=== PATIENT | male | born 1990 | race Caucasian/White ===

== ENCOUNTER 2021-11-30 20:26 | Emergency (ER) | payer BC, SELFPAY ==
[2021-11-30 20:28] VITALS: BP 140/98; PULSE 98; RESP 19; TEMP 36.7; O2SAT 98; BMI 33.2
--- NOTE | 2021-11-30 21:11 | [facility].EDSKAF ---
ED Disposition Clinical Impression: Erythema of upper extremity Disposition: Home, Self-Care Condition on Discharge: Good Instructions: DI for Cellulitis -- Adult Additional Instructions: use meds and stop zithromax and call pcp Prescriptions: Cefdinir [Omnicef 300mg Capsule] 300 mg PO BID #14 cap Transmission Status: Pending to [facility] Referrals: Rahat Potter [Primary Care Provider] - - Critical Care Critical Care Time: No Attestation: On 11/30/21, the high probability of a clinically significant, sudden or life threatening deterioration of the following system(s) required my full and direct attention, intervention and personal management. The time I documented below is in addition to time spent performing reported procedures but includes the following listed in this critical care notation. Medical Decision Making - Medical Records Medical records reviewed: Yes: I reviewed the patient's medical records. - Paramjit Inquiry Pt receiving controlled substance: No Vital Signs: 11/30/21 20:28 Temperature 98.1 F Temperature Source Oral Pulse Rate [Right] 98 H Respiratory Rate 19 Blood Pressure [Right Arm] 140/98 H Blood Pressure Mean [Right Arm] 112 Blood Pressure Source [Right Arm] Automatic Cuff 02 Sat by Pulse Oximetry 98 Oxygen Delivery Method Room Air - Lab Data Lab results reviewed: Yes: I reviewed the patient's lab results. Lab Results 11/30/21 20:59: WBC 13.7 H, RBC 5.34, Hgb 16.5, Hct 47.6, MCV 89.2, MCH 30.9, MCHC 34.6, RDW 12.9, Plt Count 307, MPV 7.5, Neut % (Auto) 63.2, Lymph % (Auto) 30.8, Waller % (Auto) 4.9, Eos % (Auto) 0.6, Baso % (Auto) 0.4, Neut # (Auto) 8.7 H, Lymph # (Auto) 4.2, Waller # (Auto) 0.7, Eos # (Auto) 0.1, Baso # (Auto) 0.1, ESR 15 11/30/21 20:59: Sodium 139, Potassium 3.8, Chloride 103, Carbon Dioxide 26, Anion Gap 13.8, BUN 17, Creatinine 0.80, Estimated Creat Clear 214, Estimated GFR 114, Est GFR ( Amer) 138, Glucose 123 H, Calcium 9.5, Total Bilirubin 0.9, AST 29, ALT 32, Alkaline Phosphatase 76, C-Reactive Protein 2.7, Total Protein 7.6, Albumin 4.9, Globulin 2.7, Albumin/Globulin Ratio 1.8, Procalcitonin 0.046 11/30/21 20:59: Lactate 2.4 H 11/30/21 20:59: D-Dimer 0.40 Result diagrams: 11/30/21 20:59 11/30/21 20:59 Orders (Tests/Meds): ED MEDICATIONS Generic Name Dose Route Start Last Admin Trade Name Freq PRN Reason Stop Dose Admin Sodium Chloride 1,000 mls @ 999 mls/hr 11/30/21 21:15 11/30/21 21:49 Sod Chlor 0.9% 1000ml Bag IV 11/30/21 22:15 999 mls/hr .Q1H1M NICKOLAS Administration Ceftriaxone Sodium 1 gm/ 50 mls @ 100 mls/hr 11/30/21 22:45 Sodium Chloride IV 12/14/21 22:44 Q24H NICKOLAS Methylprednisolone Sodium Succinate 125 mg 11/30/21 22:45 Methylprednisolone Sod Succ 125mg Vial IV 12/30/21 22:44 Q12H NICKOLAS Discontinued Medications Generic Name Dose Route Start Last Admin Trade Name Freq PRN Reason Stop Dose Admin Ketorolac Tromethamine 30 mg 11/30/21 21:11 11/30/21 21:49 Ketorolac 30mg/Ml Vial IV 11/30/21 21:12 30 mg ONCE ONE Administration ORDERS Category Date Time Status Blood Culture Stat Micro 11/30/21 21:08 Received Medical Decision Narrative: nonspecific reddness and tender to ext surface - no lesions and jts ok and rom ok - neg d dimer and nonspecific labs - possible photosensitivity vs atypical cellulitis Skin/Abscess/FB HPI - General Chief complaint: Extremity Problem,Nontraumatic Stated complaint: Pain, tenderness heat in L arm Time Seen by Provider: 11/30/21 21:00 Mode of Arrival: Family Vehicle Source of Information: Patient, Relative, Medical Record Limitations: No Limitations Description of Symptoms (Recalled from ER Triage Doc. by RN): Pt c/o Left arm pain, heat, swelling, and redness. Denies any hx of blood clots or dvt. Denies fever, chills, n/v/d, or SOA. Pt report yesterday he began taking Azithromax for an ear infection. Then today noticed his lef
[2021-11-30 21:17] LABS: Basophils # 0.1 K/mm3 (0-0.2); Basophils % 0.4 % (0.1-2.0); Eosinophils # 0.1 K/mm3 (0.0-0.4); Eosinophils % 0.6 % (0.1-12.0); Hematocrit 47.6 % (42.0-52.0); Hemoglobin 16.5 g/dL (14.1-18.0); Lymphocytes # 4.2 K/mm3 (0.7-4.5); Lymphocytes % 30.8 % (10-50); Mean Corpuscular HGB Conc 34.6 g/dL (31.8-35.4); Mean Corpuscular Hemoglobin 30.9 pg (27.0-31.2); Mean Corpuscular Volume 89.2 fl (80-94); Mean Platelet Volume 7.5 fl (7.4-10.4); Monocytes # 0.7 K/mm3 (0.1-1.0); Monocytes % 4.9 % (1.7-9.3); Neutrophils # 8.7 K/mm3 (1.8-7.8); Neutrophils % 63.2 % (37.0-80.0); Platelet Count 307 K/mm3 (142-424); Red Blood Count 5.34 M/mm3 (4.60-6.20); Red Cell Distribution Width 12.9 % (11.5-17.5); White Blood Count 13.7 K/mm3 (4.8-10.8)
[2021-11-30 21:26] LABS: Alanine Aminotransferase 32 U/L (12-78); Albumin Level 4.9 g/dl (3.5-5.0); Albumin/Globulin Ratio 1.8 (1.1-1.8); Alkaline Phosphatase 76 U/L (38-126); Anion Gap 13.8 mEq/L (5-15); Aspartate Amino Transferase 29 U/L (17-59); Bilirubin,Total 0.9 mg/dl (0.2-1.3); Blood Urea Nitrogen 17 mg/dl (9-20); Calcium 9.5 mg/dl (8.4-10.2); Carbon Dioxide 26 mmol/L (22.0-30.0); Chloride 103 mmol/L (98-107); Creatinine Clearance Estimated 214 mL/min (50-200); Estimated Glomerular Filt Rate 114 ml/min (>60); GFR (African American) 138 ML/MIN (>60); Globulin 2.7 g/dL (1.3-3.2); Glucose 123 mg/dl (74-100); Potassium 3.8 mmoL/L (3.5-5.1); Sodium 139 mmol/L (136-145); Total Protein,Serum 7.6 g/dl (6.3-8.2)
[2021-11-30 21:31] LABS: C-Reactive Protein 2.7 mg/L (0-4)
[2021-11-30 21:38] LABS: Lactic Acid 2.4 mmol/L (0.7-2.1)
[2021-11-30 21:45] LABS: Procalcitonin 0.046 ng/mL (0.0-2.0)
[2021-11-30 22:40] LABS: Erythrocyte Sedimentation Rate 15 mm/hr (0-15)
[2021-11-30 22:51] VITALS: BP 134/78; PULSE 80; RESP 18; TEMP 36.7; O2SAT 98
== END 2021-11-30 23:02 | disposition home or self-care (01) ==
PROVIDERS: Emergency Provider Emergency Medicine; PCP Family Medicine
DX: L53.9 Erythematous condition, unspecified (principal)
CPT/HCPCS: 80053; 83605; 84145; 85025; 85378; 85651; 86140; 87040; 96365; 96367; 96375; 99283; J0696